=== PATIENT | male | born 1955 | race Caucasian/White ===

== ENCOUNTER 2017-07-19 14:13 | Emergency (ER) | payer MEDICAID ==
[~2017-07-19] VITALS: Ht 167.6 cm; Wt 73.0 kg
[2017-07-19 14:18] VITALS: BP 140/108
[2017-07-19] MEDS ORDERED: SPIR25TA4 PO (14:23)
[2017-07-19] MEDS ORDERED: FURO-151 PO (14:23)
== END 2017-07-19 19:17 | disposition left against medical advice (07) ==
LOC: ER 14:13
DX: Z53.21 Procedure and treatment not carried out due to patient leaving prior to being seen by health care provider (principal)